=== PATIENT | female | born 1965 | race Two or more races ===

== ENCOUNTER 2020-05-01 21:05 | Emergency (ER) | payer SELFPAY ==
[~2020-05-01] VITALS: Ht 162.6 cm; Wt 61.0 kg
[2020-05-01 21:13] VITALS: BP 161/79
[2020-05-01] MEDS ORDERED: CEPH-264 PO (21:42)
--- NOTE | 2020-05-01 21:43 | PHYS DOC ---
Past Medical History Past Medical History: Diabetes-Type II, High Cholesterol, Hypertension Past Surgical History: No Surgical History Smoking Status: Never Smoker Alcohol Use: None General Adult EDM: Chief Complaint: LACERATION/AVULSION HPI: HPI: Patient is a 54 year old female who presents with with making dinner and cutting food when a malhotra was starting to fall off the counter and she went to grab it but when she grabbed it she had a knife in her other hand and she ended up cutting the dorsal aspect of her thumb causing a 1 inch laceration. Patient still has full function of the thumb at all joints. There is no underlying bone or joint pain. Patient does have a history of diabetes, high cholesterol, h ypertension. She states she does not remember the last time that she had a tetanus shot. She rates her pain a 2 out of 10. Review of Systems: Review of Systems: Constitutional: Denies fever or chills. [] Eyes: Denies change in visual acuity. [] HENT: Denies nasal congestion or sore throat. [] Respiratory: Denies cough or shortness of breath. [] Cardiovascular: Denies chest pain or edema. [] GI: Denies abdominal pain, nausea, vomiting, bloody stools or diarrhea. [] : Denies dysuria. [] Musculoskeletal: Denies back pain or joint pain. [] Integument: Denies rash. [] Neurologic: Denies headache, focal weakness or sensory changes. [] Endocrine: Denies polyuria or polydipsia. [] Lymphatic: Denies swollen glands. [] Psychiatric: Denies depression or anxiety. [] Heart Score: Risk Factors: Risk Factors: DM, Current or recent (<one month) smoker, HTN, HLP, family history of CAD, obesity. Risk Scores: Score 0 - 3: 2.5% MACE over next 6 weeks - Discharge Home Score 4 - 6: 20.3% MACE over next 6 weeks - Admit for Clinical Observation Score 7 - 10: 72.7% MACE over next 6 weeks - Early Invasive Strategies Current Medications: Current Medications Medications (Trade) Dose Ordered Sig/Jean Marie Start Time Stop Time Status Last Admin Dose Admin Diphtheria/ Tetanus/Acell Pertussis (ADACEL TDap SYRINGE) 0.5 ml ONCE ONCE 05/01/20 21:45 05/01/20 21:46 UNV Lidocaine HCl (Lidocaine 1% 20ml Vial) 20 ml 1X ONCE 05/01/20 21:45 05/01/20 21:46 UNV Allergies: Allergies: Allergies Coded Allergies Type Severity Reaction Last Updated Verified No Known Drug Allergies 05/01/20 No Physical Exam: PE: Constitutional: Well developed, well nourished, no acute distress, non-toxic appearance. [] HENT: Normocephalic, atraumatic, bilateral external ears normal, oropharynx moist, no oral exudates, nose normal. [] Eyes: PERRLA, EOMI, conjunctiva normal, no discharge. [] Neck: Normal range of motion, no tenderness, supple, no stridor. [] Cardiovascular:Heart rate regular rhythm, no murmur [] Lungs & Thorax: Bilateral breath sounds clear to auscultation [] Abdomen: Bowel sounds normal, soft, no tenderness, no masses, no pulsatile masses. [] Skin: Warm, dry, no erythema, no rash. [] Back: No tenderness, no CVA tenderness. [] Extremities: No tenderness, no cyanosis, no clubbing, ROM intact, no edema. [] Neurologic: Alert and oriented X 3, normal motor function, normal sensory function, no focal deficits noted. [] Psychologic: Affect normal, judgement normal, mood normal. [] Current Patient Data: Vital Signs: Vital Signs Date Time Temp Pulse Resp B/P (MAP) Pulse Ox O2 Delivery O2 Flow Rate FiO2 05/01/20 21:13 97.9 59 16 161/79 (106) 100 Room Air 97.9 EKG: EKG: [] Radiology/Procedures: Radiology/Procedures: [] Impression: [facility] [address] [place], [place] [id number] IMAGING REPORT Signed PATIENT: CHRIS CONNOLLYCOUNT: [id number] : 1965 LOCATION: ER AGE: 54 SEX: F EXAM STATUS: REG ER ORD. PHYSICIAN: PARKER FELIX APRN REASON: laceration to thumb PROCEDURE: HAND LEFT 3V Exam: Left hand 3 views INDICATION: Laceration to thumb TECHNIQUE: Frontal, lateral and oblique views of the left hand Comparisons: None FINDINGS: Bone mineralization is normal. No acute or healed fractures. Soft tissues are unremarkable. Joint spaces are well-maintained. IMPRESSION: No acute osseous abnormality. Electronically signed by: Kala Keane MD (05/01/2020 10:07 PM) [id number] DICTATED and SIGNED BY: KALA KEANE MD DATE: 05/01/202206 Course & Med Decision Making: Course & Med Decision Making Pertinent Labs and Imaging studies reviewed. (See chart for details) See HPI. Radial pulse strong present. Cap refill less than 2 seconds. Alert and oriented x4. Bleeding is controlled. Ambulatory with a steady gait. Denies numbness or tingling or laxity of the joint. Laceration repair Location: Left dorsal thumb 1inch Local anesthesia: Lidocaine 1% Interrupted sutures/Internal sutures: 7 sutures using 5-0 Nerve/ligament/muscle damage: None Cleaning and irrigation: Saline and chlorhexidine The appropriate timeout was taken. The area was prepped and draped in the usual sterile fashion. The wound was copiously irrigated with normal saline and chlorhexidine. Patient tolerated well without complication. Dressing was applied to the area follow-up education is given to observe for signs and sympto ms of infection, bleeding and to follow-up promptly if these occur. Patient can return in 48 hours for a wound recheck. Sutures to be removed in 7 to 10 days. [] Ynes Disclaimer: Dragjuani Disclaimer: This electronic medical record was generated, in whole or in part, using a voice recognition dictation system. Departure Departure Impression: Primary Impression: Laceration Disposition: 01 HOME, SELF-CARE Condition: STABLE Referrals: NO PCP (PCP) Patient Instructions: Laceration Care, Adult Additional Instructions: Follow up with primary care provider. Sutures need to be removed and 10 days. Take antibiotic as prescribed. Watch for signs of infection such as redness, drainage, swelling, increased pain. Scripts Cephalexin (KEFLEX) 500 Mg Capsule 1 CAP PO TID for 7 Days, #21 CAP 0 Refills Prov: PARKER FELIX APRN 05/01/20 Justicifation of Admission Dx: Justifications for Admission: Justification of Admission Dx: N/A PARKER FELIX APRN May 01, 2020 21:43
[2020-05-01] MEDS ORDERED: NEOMY/BACITR/POLYMYXIN OINT PACKET. TP ONE (22:00)
[2020-05-01] MEDS ORDERED: DIPH,PERTUSS(ACELL),TET VAC/PF 0.5 ML SYRINGE. VAX IM ONE (22:00)
[2020-05-01] MEDS ORDERED: LIDOCAINE 1% Multi-Dose 20 ML VIAL. INJ ONE (22:00)
--- NOTE | 2020-05-01 22:10 | RAD ---
Exam: Left hand 3 views INDICATION: Laceration to thumb TECHNIQUE: Frontal, lateral and oblique views of the left hand Comparisons: None FINDINGS: Bone mineralization is normal. No acute or healed fractures. Soft tissues are unremarkable. Joint spaces are well-maintained. IMPRESSION: No acute osseous abnormality. Electronically signed by: Kala Perez MD (05/01/2020 10:07 PM) [id number]
== END 2020-05-01 22:48 | disposition home or self-care (01) ==
LOC: ER 21:05
DX: S61.012A Laceration without foreign body of left thumb without damage to nail, initial encounter (principal); E11.9 Type 2 diabetes mellitus without complications; E78.00 Pure hypercholesterolemia, unspecified; I10 Essential (primary) hypertension; W26.0XXA Contact with knife, initial encounter; Y93.89 Activity, other specified; Y92.89 Other specified places as the place of occurrence of the external cause; Y99.8 Other external cause status
CPT/HCPCS: 12002; 73130; 90471; 90715; 99283; J3490